=== PATIENT | male | born 1950 | race Caucasian/White ===

== ENCOUNTER → 2016-12-11 | Outpatient (CLI) | payer OTHER ==
[~2016-12-11] MED LIST: ASPIRIN325 PO; ATORVASTATIN CA80 MG PO; AUGMENTIN 875-1 EACH PO; FLONASE 0.05%50 MCG NASAL; HEART PILL PO; LIPITOR80 MG PO; LOPRESSOR25 PO; PLAVIX 75 MG TA75 M1 PO; PLAVIX 75 MG TA75 MG PO; VENTOLIN HFA INH8 GM INH; VITAMIN D1000 UNI1 PO; ZPAK PO
== END ==
LOC: RAD 11:05
DX: J18.9 Pneumonia, unspecified organism (principal)

== ENCOUNTER 2017-06-18 10:28 | Emergency (ER) | payer OTHER ==
[~2017-06-18] VITALS: Ht 180.3 cm; Wt 72.6 kg
[2017-06-18] MEDS ORDERED: TORADOL 10 MG T10 MG PO (11:30)
[2017-06-18] MEDS ORDERED: MOBIC15 MG PO (11:48)
== END 2017-06-18 12:45 | disposition home or self-care (01) ==
LOC: ER 10:28
DX: S90.112A Contusion of left great toe without damage to nail, initial encounter (principal); I25.2 Old myocardial infarction; I25.10 Atherosclerotic heart disease of native coronary artery without angina pectoris; I10 Essential (primary) hypertension; E78.5 Hyperlipidemia, unspecified; Z94.81 Bone marrow transplant status; Z91.041 Radiographic dye allergy status; Z88.8 Allergy status to other drugs, medicaments and biological substances; Z85.6 Personal history of leukemia; W22.09XA Striking against other stationary object, initial encounter; Y93.89 Activity, other specified; Y92.89 Other specified places as the place of occurrence of the external cause; Y99.8 Other external cause status

== ENCOUNTER 2017-08-08 20:10 | Inpatient (IN) | payer OTHER ==
[~2017-08-08] VITALS: Ht 180.3 cm; Wt 62.1 kg
--- NOTE | ~2017-08-08 | HC ---
[facility] [place] [address] CONSULTATION Name: RANJIT DODGEAPOLINAR George Room #: 210-P ADM IN M.R.#: [id number] Admission: 08/09/17 Attend Phys: Benjie Peres MD Discharge: Date of : 48 Report #: [id number] THIS REPORT FOR: //name// CC: Phoebe Peres DATE OF SERVICE: 08/14/2017 CARDIOLOGY CONSULTATION INDICATION: Coronary artery disease. HISTORY OF PRESENT ILLNESS: This is a 67-year-old gentleman who was admitted for nonhealing ulcer on his right foot. He has a significant history of CAD and peripheral vascular disease, but has been noncompliant with followup. Evaluation has revealed DVT in his right lower venous system with pulmonary emboli. He has been treated with IV heparin and started on Xarelto. CT angiogram reveals an occluded right common iliac artery stent with complete thrombosis of the right PILAR and EIA. The right SFA is occluded and the profunda artery supplies the popliteal artery. He is scheduled to possibly undergo right lower extremity peripheral bypass as well as amputation of the toes. From a cardiac standpoint, he has a prior history of DE with stent placement at [facility], more than 10 years ago. Again, he has not followed up with Cardiology in regards to his history of CAD and DE. The patient denies any episodes of angina, dyspnea, lightheadedness or congestion. However, his ambulation is limits and we are unable to assess his functional capacity. PAST MEDICAL HISTORY: CAD/DE with remote stent placement. Peripheral vascular disease with prior left lower extremity bypass. History of leukemia, hypertension and hypercholesterolemia. ALLERGIES: CONTRAST DYE AND PSEUDOEPHEDRINE. MEDICATIONS: At home include Toradol, aspirin, metoprolol twice a day, meloxicam and Ventolin. SOCIAL HISTORY: Positive for tobacco use, smoking 1 pack per day. FAMILY HISTORY: Negative for premature CAD. REVIEW OF SYSTEMS: A full 10-point review of systems performed. Only the pertinent positives and negatives are described in the HPI. PHYSICAL EXAMINATION: [facility] [address] [place] [address] CONSULTATION Name: DAMION DODGE Room #: 210-P [facility] IN [facility].#: [id number] Admission: 08/09/17 Attend Phys: Benjie Peres MD Discharge: Date of : 48 Report #: [id number] VITAL SIGNS: Blood pressure is 130/70, heart rate is 70 beats per minute. GENERAL APPEARANCE: This is a thin male, in no acute respiratory distress. HEAD AND EYES: Normocephalic. Sclerae are anicteric. ENT: Oral mucosa is moist. NECK: Supple, no JVD. LUNGS: Clear to auscultation bilaterally. CARDIAC: Regular rate and rhythm, S1, S2 positive, 1/6 systolic murmur. ABDOMEN: Soft, nontender. EXTREMITIES: No cyanosis. Right foot is bandaged. LABORATORY VALUES: White count 6.9, hemoglobin is 11.4. Sodium is 139. Creatinine is 0.8. Troponin is negative. ASSESSMENT AND PLAN: 1. Preoperative evaluation, he has a prior history of coronary artery disease with stent placement, but has been noncompliant with followup. Clinically, he offers no complaints of angina or dyspnea. However, it is difficult to evaluate his functional status given his underlying peripheral vascular disease. He does not have any absolute contraindications to proceed with the peripheral vascular surgery, especially since it is indicated for quality of life issues. I will schedule the patient for pharmacologic nuclear stress test in order to risk stratify the patient. 2. Peripheral vascular disease, continue workup for peripheral bypass. 3. Pulmonary embolism, status post inferior vena cava filter, currently on Xarelto. 4. Hypertension, continue with medications including beta-behzad and SEB/ARB. 5. Hypercholesterolemia, statin therapy. 6. Tobacco use, complete smoking cessation is recommended. Thank you for allowing me to participate in the care of your patient. <ELECTRONICALLY SIGNED> By: Ousmane Astorga MD 08/15/17 0811 1640 0435 Ousmane Astorga MD /nt
--- NOTE | ~2017-08-08 | HC ---
[facility] [place] [address] CONSULTATION Name: DAMION DODGE Room #: 210-P ADM IN M.R.#: [id number] Admission: 08/09/17 Attend Phys: Benjie Peres MD Discharge: Date of : 48 Report #: [id number] THIS REPORT FOR: //name// CC: Sean Villegas CHIEF COMPLAINT: Right fifth toe pain. HISTORY OF PRESENT ILLNESS: The patient is a 67-year-old gentleman admitted through the [place] ER for evaluation of a necrotic right fifth toe. The patient reports that this has been bothering him for the last couple of months. He does not recall any obvious injury or trauma, but notes that it is becoming darker and more black in appearance. He reports a longstanding history of vascular disease. He has seen Dr. Corbett at [place] to have some vascular procedures as well as a vascular surgeon at [facility]. He reports scratching several areas of his leg that have developed into eschars. Reports his ambulation has been more limited recently. PAST MEDICAL HISTORY: Significant for ____ peripheral arterial disease, DVT, pneumonia, tobaccoism, coronary artery disease with myocardial infarction and stents, hypertension, status post fem-pop to left lower extremity, leukemia status post bone marrow transplant in 1999, hyperlipidemia. ALLERGIES: CONTRAST DYE AND PSEUDOEPHEDRINE. CURRENT MEDICATIONS: Please see current MAR. SOCIAL HISTORY: The patient is retired, was approximate 1 pack per day smoker x 52 years per the chart. Denies alcohol use. PHYSICAL EXAMINATION: GENERAL: The patient is alert, oriented, answering questions appropriately. The patient is dirty, unkempt and appears to be in no apparent distress. VITAL SIGNS: Height 5 feet 11 inches, weight is measured as 125 and then 150, temperature 98.1, pulse 77, respirations 20, O2 sats 96% on room air, BP 124/91. EXTREMITIES: Examination of the lower extremities reveals below the proximal thigh of the right lower extremity is cool, appears to have chronic vascular disease. Large eschars are noted on the anterior leg. Multiple eschars are noted about the foot. Foot is cool. No peripheral pulses or significant capillary refill is noted. Black, necrotic fifth toe in its entirety is appreciated. The patient is able to minimally flex and extend the toes and ankle. The ____ knee itself is not swollen on the right side and has mild warmth and improved capillary refill. Left lower extremity demonstrates chronic vascular disease on gross exam, but has improved warmth and capillary refill noted. Healed incisions from his prior vascular surgeries were noted more proximally. He denies any hip or groin pain or tenderness. 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 Venous ultrasound reveals DVT of common femoral vein distally, appears to be chronic thrombus. Arterial Dopplers reveal occlusion of the right superficial femoral artery with collateral blood flow to the popliteal artery, nothing inferior, no infrapopliteal vessels are visualized, presumed occlusion. LABORATORY DATA: Reviewed. IMPRESSION: 1. Right fifth toe necrosis, dry gangrene. 2. Right lower extremity peripheral arterial disease, chronic. PLAN: I have reviewed potential treatment options with the patient. He has requested Vascular Surgery evaluation or evaluation by Dr. Corbett who has performed some other procedures for him. I think this is reasonable. In discussing what tissue appears viable at this point, it appears unlikely that he will be able to support any tissue for any intermediate. Below the proximal leg, something was to be done from surgical standpoint. I feel like a below-knee amputation would be the lowest level that he could potentially support. The patient does not find this acceptable at all, has no desire for any amputations. He reports the one thing that he would consider would be a fifth toe amputation, but at this point, I think that this will be extremely unlikely to heal and would just be an open nidus for infection. We will have him seen by Vascular Surgery and we will continue to follow with you. <ELECTRONICALLY SIGNED> By: Iron Vasquez MD 08/15/17 0916 0920 1845 Iron Vasquez MD /nt
--- NOTE | ~2017-08-08 | CATHLAB ---
[place] [address] [place] [address] INVASIVE PROCEDURE REPORT Name: ECHODAMION Room #: 210-P [facility] IN ..#: [id number] Admission: 08/09/17 Attend Phys: Derick Lopez Discharge: Date of : 48 Date of Service: 08/18/1705 Report #: [id number] THIS REPORT FOR: //name// APPROVED REPORT Patient Details Patient Status: In-Patient Room #: The patient is a 67 year-old male Event Personnel Ousmane Astorga Mannequin Decorator, Gloria Dixon Monitor, Ruthy Burgos Penny, Wes RN Procedures Performed Art Access - L femoral artery* Left Heart Cath w/or w/o Coronaries [id number] [facility] Indication Dyspnea, Pre-op clearance Risk Factors Peripheral Vascular Disease, Hypercholesterolemia, Coronary Artery DiseaseHypertension, Tobacco History () Previous Procedures/Diagnoses Previous PCI, Previous Vascular Surgery Procedure Narrative The patient was brought urgently to the Cardiac Catheterization Laboratory and was prepped and draped in a sterile manner. The left femoral was infiltrated with 1% Lidocaine subcutaneous anesthesia. A PINNACLE 5FR Sheath #[id number] sheath was inserted into the LFA^. Coronary angiography was performed using coronary diagnostic catheters. The right coronary system was accessed and visualized with a JR 4 catheter. The left coronary system was accessed and visualized with a JL 4 catheter. The left ventricle was accessed and visualized with a JR 4 catheter. The patient tolerated the procedure well and there were no complications associated with the procedure. There was no hematoma. Intraoperative Conscious Sedation Sedation start time: 14:14 Case end Time: 16:05 Fentanyl 250.0 mcg Versed 5.[address] [address] INVASIVE PROCEDURE REPORT Name: DAMION DODGE Room #: 210-P [facility] IN [facility].#: [id number] Admission: 08/09/17 Attend Phys: Derick Lopez Discharge: Date of : 48 Date of Service: 08/18/17 0805 Report #: [id number] Fluoro Time: 21.34 minutes Dose: DAP 24359.50 cGycm2 901 mGy Contrast Type and Amount: Visipaque 248 ml Coronary Angiography The patient's coronary anatomy is right dominant. Diagnostic Cath Left Main Large-caliber vessel, with mild stenosis in the midsegment, 20%. LAD Stent in the proximal segment, widely patent with minimal restenosis. There are no flow-limiting lesions in the remaining segments of the LAD. Circumflex Patent vessel, supplies 2 obtuse marginal arteries OM1 Patent with mild disease. OM2 Mild to modest stenosis in the ostium, 40% Right Coronary Dominant vessel with a mild to moderate stenosis in the proximal segment, 40% R PDA Patent with no flow-limiting lesions. RPLV Patent with no flow-limiting lesions. Left Ventriculography Left Ventriculography was not performed. An LVEDP was measured, no gradient across the outflow tract. Hemodynamics The aortic pressure is 160/71 mmHg with a mean of 107 mmHg. The left ventricular pressure is 172/5 mmHg with a mean of mmHg. The left ventricular end diastolic pressure is 26 mmHg. Conclusion 1. Patent stent in the proximal LAD with minimal restenosis. 2. Mild to moderate disease, as noted above. 3. Recommend medical therapy. Recommendations Medical Therapy <ELECTRONICALLY SIGNED> By: Ousmane Astorga MD 08/18/17804 4 4 Ousmane Astorga MD /INF
--- NOTE | ~2017-08-08 | HC ---
[facility] [place] [address] CONSULTATION Name: ECHODAMION Room #: 251-P ADM IN M.R.#: [id number] Admission: 08/09/17 Attend Phys: Benjie Peres MD Discharge: Date of : 49 Report #: [id number] THIS REPORT FOR: //name// CC: Phoebe Peres REASON FOR CONSULTATION: I was asked to evaluate concerning sepsis. HISTORY OF PRESENT ILLNESS: The patient is a 67-year-old with underlying history of coronary artery disease and peripheral vascular disease. He has had previous right fem-pop bypass on the left and stenting on the right. He also has a history of leukemia, having been in remission since 1999. Three months ago, he had a local trauma to the right fifth distal toe. Lost the nail. He has had progressive wound since that time. He presents on 08/09, with progressive pain and wounds involving the right lower extremity [id number]. Workup had shown obstruction of the common iliac stent with incomplete runoff. Also, diagnosed with DVT and pulmonary embolus. He has been somewhat difficult to manage, wanting to leave AMA. Last evening was confused, pulled his IV out, was pacing the floor, received some anxiolytics. Now, he is obtunded down in the intensive care unit. Unable to give any history. Fever documented up to 38.3. Hemodynamically stable. He has been on vancomycin and Zosyn. He has significant amount of pain in his right foot. No cough or sputum production. No nausea, vomiting, or diarrhea. No reported decubiti. He has an indwelling Diggs catheter. He pulled out his PICC line and has peripheral IVs in place at this time. ALLERGIES: CONTRAST DYE and PSEUDOEPHEDRINE. MEDICATIONS: As noted on his MAR including vancomycin and Zosyn. PAST MEDICAL HISTORY: Leukemia, coronary artery disease, COPD, rheumatoid arthritis, peripheral vascular disease, left fem-pop bypass, right iliac artery stenting, smoker of cigarettes. SOCIAL HISTORY: In addition to the above, lives alone, uses marijuana and reportedly quit alcohol several years ago. REVIEW OF SYSTEMS: The patient is unable to give any details other as noted above. FAMILY HISTORY: Noncontributory. PHYSICAL EXAMINATION: VITAL SIGNS: Afebrile, blood pressure 137/73, pulse 80. GENERAL: He was disheveled. Long zuleta. Edentulous. NECK: Supple. [facility] [address] [place] [address] CONSULTATION Name: DAMION DODGE Room #: 251-P [facility] IN .R.#: [id number] Admission: 08/09/17 Attend Phys: Benjie Peres MD Discharge: Date of : 48 Report #: [id number] EXTREMITIES: Ischemic changes to his right lower extremity [id number]. He had some modeling from the calf down. He had dorsal foot eschar wounds, had dry gangrene to the fourth and fifth toes. Ischemic first toe. Exquisitely tender throughout his lower leg with withdrawal when palpated. Diminished pulses throughout the right leg. CHEST: Clear. HEART: Regular. ABDOMEN: Soft, nontender, no hepatosplenomegaly or mass. GENITOURINARY: External genitalia unremarkable with indwelling Diggs catheter. LABORATORY STUDIES: CT of the head negative. Chest x-ray on admission, clear. Urinalysis had rbc's. There is an IVC filter in place. Angiogram showed occlusive disease of the right lower extremity. Sodium 145, potassium 3.1, creatinine 0.9, and bicarbonate 29. Hemoglobin 13, white count 6, 82% segs, 9% lymphs, platelet count 104,000. IMPRESSION: Encephalopathy with delirium leading up to this. He has ischemia to the right lower extremity and gangrene. We would recommend IV antibiotic therapy pending culture results. This should cover the right lower extremity ischemic tissue and wounds. Workup of his encephalopathy is ongoing by neurology service. I suspect a component of toxic metabolic encephalopathy. He has some underlying emotional issues, I am suspecting at the start. Unclear if he could potentially have alcohol withdrawal syndrome. RECOMMENDATION: Continue IV antibiotic therapy. Obtain cultures of blood. Chest x-ray. He does have underlying DVT and PE that is required IVC filter and anticoagulation. We will also check HIV and hepatitis B and C. <ELECTRONICALLY SIGNED> By: Emil Montano MD 08/14/17 0928 1035 1256 Emil Montano MD /nt
--- NOTE | ~2017-08-08 | EEG ---
[facility] [place] [address] ELECTROENCEPHALOGRAM Name: DAMION DODGE Room #: 210-P ADM IN M.R.#: [id number] Admission: 08/09/17 Attend Phys: Benjie Peres MD Discharge: Date of : 48 Report #: [id number] THIS REPORT FOR: //name// CC: Phoebe Peres DATE OF SERVICE: 08/13/2017 DATE OF SERVICE: 08/13/2017 PROCEDURE: EEG. INDICATIONS FOR PROCEDURE: This patient's EEG is being done because of altered mental status. DESCRIPTION OF PROCEDURE: EEG was done by placing the electrodes by standard 10-20 system of electrode placement. Both referential and sequential montages were used for recording. Background activity in this patient's EEG is about 7-8 Hz and 30-40 microvolts. Photic stimulation was unremarkable. IMPRESSION: This is a moderately abnormal EEG because it is intermixed with slowing and is poorly formed. That is a nonspecific abnormality, which can occur with encephalopathy, effect of psychotropic medication, dementia, etc. Clinical correlation is recommended. Thank you very much for this referral. <ELECTRONICALLY SIGNED> By: Seng Scanlon MD 08/18/17 0624 0749 0800 Seng Scanlon MD /nt
--- NOTE | ~2017-08-08 | 2DMMODE ---
[facility] [address] [place] [address] 2 D/M-MODE ECHOCARDIOGRAM Name: DAMION DODGE Room #: 251-P ADM IN M.R.#: [id number] Admission: 08/09/17 Attend Phys: Derick Lopez Discharge: Date of : 48 Date of Service: 08/14/17 1425 Report #: [id number] THIS REPORT FOR: //name// APPROVED REPORT Study performed: 08/14/2017 12:34:45 EXAM: Comprehensive 2D, Doppler, and color-flow Echocardiogram Patient Location: ICU Room #: [facility] Status: routine BSA: 1.75 HR: 104 bpm BP: 146/83 mmHg Other Information Study Quality: Adequate Indications CAD Hypertension/HDD 2D Dimensions RVDd: 39.85 mm LVEF(%): 34.25 (>50%) IVSd: 8.57 (7-11mm) LVOT Diam: 21.54 (18-24mm) LVDd: 49.74 mm PWd: 9.99 (7-11mm) Ascending Ao: 34.36 (22-36mm) LVDs: 41.59 (25-40mm) Aortic Root: 31.35 mm IVC: 27.00 mm Ho's LVEF: 34.25 % Volumes Left Atrial Volume (Systole) Single Plane 4CH: 36.79 mL Single Plane 2CH: 61.31 mL LA ESV Index: 34.00 mL/m2 Aortic Valve AoV Peak Shane.: 1.82 m/s AO Peak Gr.: 13.28 mmHg LVOT Max P.14 mmHg LVOT Max V: 1.02 m/s KENNY Vmax: 2.03 cm2 Mitral Valve E/A Ratio: 0.9 MV Decel. Time: 124.87 ms [facility] [place] [address] 2 D/M-MODE ECHOCARDIOGRAM Name: DAMION DODGE Room #: 251-P [facility] IN .R.#: [id number] Admission: 08/09/17 Attend Phys: Derick Lopez Discharge: Date of : 48 Date of Service: 08/14/17 1425 Report #: [id number] MV E Max Shane.: 1.06 m/s MV A Shane.: 1.20 m/s MV PHT: 36.21 ms IVRT: 96.89 ms Pulmonary Valve PV Peak Shane.: 0.94 m/s PV Peak Gr.: 3.53 mmHg Left Ventricle The left ventricle is normal size. Regional wall motion abnormalities are noted. There is normal left ventricular wall thickness. Left ventricular ejection fraction is mild to moderately decreased. LVEF is 40-45%. Grade I - abnormal relaxation pattern. Right Ventricle The right ventricle is normal size. The right ventricular systolic function is normal. Atria Left atrium is at the upper limits of normal. The right atrium size is normal. Aortic Valve The aortic valve is normal in structure. Aortic valve is calcified. Trace aortic regurgitation. There is no aortic valvular stenosis. Mitral Valve The mitral valve is normal in structure. Trace mitral regurgitation. No evidence of mitral valve stenosis. Tricuspid Valve The tricuspid valve is normal in structure. There is no tricuspid valve regurgitation noted. Pulmonic Valve The pulmonary valve is normal in structure. There is no pulmonic valvular regurgitation. Great Vessels The aortic root is normal in size. IVC is dilated and collapses >50% with inspiration. Pericardium There is no pericardial effusion. [facility] [address] [place] [address] 2 D/M-MODE ECHOCARDIOGRAM Name: DAMION DODGE Doris Room #: 251-P [facility] IN .R.#: [id number] Admission: 08/09/17 Attend Phys: Derick Lopez Discharge: Date of : 48 Date of Service: 08/14/17 1425 Report #: [id number] <Conclusion> Left ventricular ejection fraction is mild to moderately decreased. The right ventricle is normal size. Left atrium is at the upper limits of normal. Aortic valve is calcified. Trace aortic regurgitation. Trace mitral regurgitation. There is no pericardial effusion. <ELECTRONICALLY SIGNED> By: Ousmane Astorga MD 08/14/17 142 1425 24 Ousmane Astorga MD /RADHA
[~2017-08-08 20:10] MED LIST changes: +MOBIC15 MG PO; +TORADOL 10 MG T10 MG PO
[2017-08-08 20:11] VITALS: BP 132/88
[2017-08-09 00:47] LABS: HEMATOCRIT 44.3 % (42.0-52.0); HEMOGLOBIN 15.1 gm/dL (14.0-18.0); MCH 31.7 pg (26.0-34.0); MCV 93.2 fL (80.0-100.0); RBC 4.75 mil/uL (4.50-6.00); RDW 13.3 % (10.5-14.5); WBC 8.1 thou/uL (4.0-11.0)
[2017-08-09 00:50] LABS: CALCIUM 8.8 mg/dL (8.5-10.1); CREATININE 0.9 mg/dL (0.7-1.3); POTASSIUM 3.4 mmol/L (3.5-5.1)
[2017-08-09 00:56] LABS: ALBUMIN 2.6 g/dL (3.4-5.0); TOTAL BILIRUBIN 0.8 mg/dL (<0.1-1.0); TOTAL PROTEIN 6.5 g/dL (6.4-8.2)
[2017-08-09 01:04] LABS: INR 1.1
[2017-08-09 02:46] VITALS: BP 104/63
[2017-08-09 02:55] VITALS: BP 121/94
[2017-08-09 08:15] VITALS: BP 124/91
[2017-08-09 12:16] VITALS: BP 107/73
[2017-08-09 16:33] VITALS: BP 130/72
[2017-08-09 19:00] VITALS: BP 103/69
[2017-08-10 04:00] VITALS: BP 140/77
[2017-08-10 05:10] LABS: HEMOGLOBIN 13.9 gm/dL (14.0-18.0); MCHC 34.7 g/dL (28.0-37.0); MCV 92.1 fL (80.0-100.0); RBC 4.35 mil/uL (4.50-6.00); RDW 13.2 % (10.5-14.5); WBC 10.1 thou/uL (4.0-11.0)
[2017-08-10 05:22] LABS: ALBUMIN 2.3 g/dL (3.4-5.0); ANION GAP 9 mmol/L (7-16); BUN 14 mg/dL (7-18); CALCIUM 8.4 mg/dL (8.5-10.1); CHLORIDE 103 mmol/L (98-107); CHOLESTEROL 132 mg/dL (<200); CO2 26 mmol/L (21-32); CREATININE 0.7 mg/dL (0.7-1.3); GLUCOSE 117 mg/dL (74-106); HDL CHOLESTEROL 26 mg/dL (>40); LDL CHOLESTEROL 92 mg/dL (<100); PHOSPHORUS 3.4 mg/dL (2.5-4.9); POTASSIUM 3.5 mmol/L (3.5-5.1); SODIUM 138 mmol/L (136-145); TC:HDL 5.1 Ratio (Not establshd); TRIGLYCERIDE 74 mg/dL (<150); VLDL 15 mg/dL (<40)
[2017-08-10 11:18] VITALS: BP 100/68
[2017-08-10 15:28] VITALS: BP 113/79
[2017-08-10 19:43] VITALS: BP 90/55
[2017-08-11 03:09] VITALS: BP 133/57
[2017-08-11 07:31] VITALS: BP 116/79
[2017-08-11 19:21] VITALS: BP 106/78
[2017-08-12 04:35] VITALS: BP 127/88
[2017-08-12 08:25] VITALS: BP 106/70
[2017-08-12 14:59] VITALS: BP 106/70
[2017-08-12 19:20] VITALS: BP 105/64
[2017-08-13] VITALS (40 sets, daily range): BP systolic 105–161; BP diastolic 44–112
[2017-08-13 09:26] LABS: URINE BILIRUBIN NEGATIVE (Negative); URINE BLOOD 3+ (Negative); URINE GLUCOSE-RANDOM* NEGATIVE (Negative); URINE KETONES NEGATIVE (Negative); URINE LEUKOCYTES-REFLEX NEGATIVE (Negative); URINE PROTEIN (DIPSTICK) NEGATIVE (Negative); URINE UROBILINOGEN 0.2 E.U./dl (0.2-1.0)
[2017-08-13 09:29] LABS: URINE COLOR DARK YELLOW
[2017-08-13 09:30] LABS: ABSOLUTE NEUTROPHILS 4.9 thou/uL (1.4-8.2); BASOPHILS 0.4 % (0.0-2.0); EOSINOPHILS 0.8 % (0.0-3.0); HEMATOCRIT 37.8 % (42.0-52.0); HEMOGLOBIN 13.1 gm/dL (14.0-18.0); LYMPHOCYTES 9.8 % (24.0-44.0); MCH 31.7 pg (26.0-34.0); MCHC 34.5 g/dL (28.0-37.0); MCV 91.8 fL (80.0-100.0); PLATELET COUNT 104 thou/uL (150-400); RBC 4.12 mil/uL (4.50-6.00)
[2017-08-13 09:35] LABS: MANUAL DIFF NO
[2017-08-13 09:38] LABS: CALCIUM 8.1 mg/dL (8.5-10.1); CREATININE 0.9 mg/dL (0.7-1.3); POTASSIUM 3.1 mmol/L (3.5-5.1)
[2017-08-13 09:45] LABS: CASTS None Seen /LPF (None Seen); CRYSTALS None Seen /LPF (None Seen); SQUAMOUS None Seen /LPF (0-3); URINE RBC >20 Many /HPF (0-2); URINE WBC-REFLEX None Seen /HPF (0-5)
[2017-08-13 11:04] LABS: AMP/METHAMP Negative (Negative); BARBITURATES Negative (Negative); BENZODIAZEPINES Negative (Negative); COCAINE Negative (Negative); METHADONE Negative (Negative); OPIATES Negative (Negative); PCP Negative (Negative); THC Negative (Negative)
[2017-08-14] VITALS (70 sets, daily range): BP systolic 94–172; BP diastolic 37–106
[2017-08-14 00:06] LABS: HEPATITIS C VIRUS AB <0.1 (0.0-0.9); HIV ANTIBODY Non Reactive (Non Reactive)
[2017-08-14 03:04] LABS: ABSOLUTE NEUTROPHILS 5.3 thou/uL (1.4-8.2); BASOPHILS 0.4 % (0.0-2.0); EOSINOPHILS 1.3 % (0.0-3.0); HEMATOCRIT 33.6 % (42.0-52.0); HEMOGLOBIN 11.4 gm/dL (14.0-18.0); LYMPHOCYTES 9.6 % (24.0-44.0); MCH 31.3 pg (26.0-34.0); MCHC 33.8 g/dL (28.0-37.0); MCV 92.4 fL (80.0-100.0); MONOCYTES 11.1 % (1.0-8.0); PLATELET COUNT 108 thou/uL (150-400); POLYS 77.6 % (36.0-66.0); RBC 3.64 mil/uL (4.50-6.00); RDW 13.1 % (10.5-14.5); WBC 6.9 thou/uL (4.0-11.0)
[2017-08-14 03:06] LABS: MANUAL DIFF NO
[2017-08-14 03:15] LABS: ALBUMIN 1.6 g/dL (3.4-5.0); ALKALINE PHOSPHATASE 40 U/L (46-116); ANION GAP 6 mmol/L (7-16); BUN 10 mg/dL (7-18); CALCIUM 7.7 mg/dL (8.5-10.1); CHLORIDE 106 mmol/L (98-107); CO2 27 mmol/L (21-32); CREATININE 0.8 mg/dL (0.7-1.3); GLUCOSE 116 mg/dL (74-106); POTASSIUM 3.1 mmol/L (3.5-5.1); SGOT 27 U/L (15-37); SGPT 22 U/L (30-65); SODIUM 139 mmol/L (136-145); TOTAL BILIRUBIN 0.4 mg/dL (<0.1-1.0); TOTAL PROTEIN 4.9 g/dL (6.4-8.2); TROPONIN-I < 0.04 ng/mL (<0.04-0.07)
[2017-08-15] VITALS (14 sets, daily range): BP systolic 133–150; BP diastolic 61–78
[2017-08-16 03:48] VITALS: BP 123/53
[2017-08-16 04:29] LABS: HEMATOCRIT 32.7 % (42.0-52.0); MCHC 33.5 g/dL (28.0-37.0); MCV 92.4 fL (80.0-100.0); PLATELET COUNT 142 thou/uL (150-400); RBC 3.54 mil/uL (4.50-6.00); WBC 7.6 thou/uL (4.0-11.0)
[2017-08-16 04:30] LABS: CALCIUM 7.9 mg/dL (8.5-10.1); CREATININE 0.7 mg/dL (0.7-1.3); POTASSIUM 3.3 mmol/L (3.5-5.1)
[2017-08-16 04:53] LABS: MANUAL DIFF YES
[2017-08-16 06:03] LABS: ABSOLUTE NEUTROPHILS 7.3 thou/uL (1.4-8.2); ATYPICAL LYMPHS 1 %; TOTAL CELL COUNT 100
[2017-08-16 09:10] VITALS: BP 106/56
[2017-08-16 12:30] VITALS: BP 131/62
[2017-08-16 17:45] VITALS: BP 143/54
[2017-08-16 19:34] VITALS: BP 117/64
[2017-08-17 04:11] VITALS: BP 119/62
[2017-08-17 04:48] LABS: BASOPHILS 0.3 % (0.0-2.0); EOSINOPHILS 4.3 % (0.0-3.0); HEMATOCRIT 30.1 % (42.0-52.0); HEMOGLOBIN 10.3 gm/dL (14.0-18.0); MCH 31.5 pg (26.0-34.0); MCV 92.6 fL (80.0-100.0); PLATELET COUNT 143 thou/uL (150-400); POLYS 75.4 % (36.0-66.0); RBC 3.26 mil/uL (4.50-6.00); WBC 6.7 thou/uL (4.0-11.0)
[2017-08-17 05:00] LABS: MANUAL DIFF NO
[2017-08-17 05:04] LABS: CALCIUM 7.8 mg/dL (8.5-10.1); CREATININE 0.8 mg/dL (0.7-1.3); POTASSIUM 3.2 mmol/L (3.5-5.1)
[2017-08-17 08:00] VITALS: BP 139/64
[2017-08-17 10:53] LABS: CALCIUM 7.7 mg/dL (8.5-10.1); CREATININE 0.7 mg/dL (0.7-1.3); MAGNESIUM 1.7 mg/dL (1.8-2.4); POTASSIUM 3.1 mmol/L (3.5-5.1)
[2017-08-17 12:00] VITALS: BP 108/69
[2017-08-17 16:00] VITALS: BP 147/61
[2017-08-17 19:45] VITALS: BP 134/64
[2017-08-18 04:30] VITALS: BP 102/79
[2017-08-18 07:20] VITALS: BP 122/76
[2017-08-18 07:56] VITALS: BP 134/78
[2017-08-18 11:10] VITALS: BP 116/70
[2017-08-18 14:21] LABS: ABSOLUTE NEUTROPHILS 6.1 thou/uL (1.4-8.2); BASOPHILS 0.4 % (0.0-2.0); EOSINOPHILS 2.7 % (0.0-3.0); HEMATOCRIT 36.5 % (42.0-52.0); HEMOGLOBIN 12.1 gm/dL (14.0-18.0); LYMPHOCYTES 12.2 % (24.0-44.0); MCH 30.9 pg (26.0-34.0); MCHC 33.2 g/dL (28.0-37.0); MCV 93.2 fL (80.0-100.0); MONOCYTES 8.2 % (1.0-8.0); POLYS 76.5 % (36.0-66.0); RBC 3.91 mil/uL (4.50-6.00); RDW 12.9 % (10.5-14.5); WBC 7.9 thou/uL (4.0-11.0)
[2017-08-18 14:25] LABS: MANUAL DIFF NO; PLATELET COUNT 218 thou/uL (150-400)
[2017-08-18 14:29] LABS: CREATININE 0.8 mg/dL (0.7-1.3); POTASSIUM 3.6 mmol/L (3.5-5.1)
[2017-08-18 15:05] VITALS: BP 108/73
[2017-08-18 20:00] VITALS: BP 101/72
[2017-08-19 08:47] VITALS: BP 89/60
[2017-08-19] MEDS ORDERED: CLOPIDOGREL75 MG PO (10:43)
[2017-08-19 11:19] VITALS: BP 109/66
[2017-08-19] MEDS ORDERED: AUGMENTIN 875-1 EACH PO (11:28)
[2017-08-19 15:59] VITALS: BP 99/57
== END 2017-08-19 16:33 | DRG 853 ==
LOC: ER 20:10 → 4W 08-09 00:13 → EROBS 08-09 00:13 → 4W 08-09 02:48 → ICU 08-13 09:39 → 2N 08-14 18:40
PROVIDERS: Family Medicine; Hospitalist; Nuclear Medicine Nuclear Cardiology; Nurse Practitioner; Nurse Practitioner Acute Care; Nurse Practitioner Family; Specialist
DX: A41.9 Sepsis, unspecified organism (principal); I26.99 Other pulmonary embolism without acute cor pulmonale; G92 Toxic encephalopathy; G93.40 Encephalopathy, unspecified; I82.431 Acute embolism and thrombosis of right popliteal vein; I96 Gangrene, not elsewhere classified; L97.919 Non-pressure chronic ulcer of unspecified part of right lower leg with unspecified severity; E46 Unspecified protein-calorie malnutrition; Z94.81 Bone marrow transplant status; Z68.1 Body mass index [BMI] 19.9 or less, adult; I82.411 Acute embolism and thrombosis of right femoral vein; I25.10 Atherosclerotic heart disease of native coronary artery without angina pectoris; E78.5 Hyperlipidemia, unspecified; I10 Essential (primary) hypertension; I73.9 Peripheral vascular disease, unspecified; F17.210 Nicotine dependence, cigarettes, uncomplicated; E78.00 Pure hypercholesterolemia, unspecified; M06.9 Rheumatoid arthritis, unspecified; D69.6 Thrombocytopenia, unspecified; I25.2 Old myocardial infarction; Z85.6 Personal history of leukemia; Z95.5 Presence of coronary angioplasty implant and graft; Z79.899 Other long term (current) drug therapy; Z88.8 Allergy status to other drugs, medicaments and biological substances; Z91.041 Radiographic dye allergy status; Z82.49 Family history of ischemic heart disease and other diseases of the circulatory system; Z91.14 Patient's other noncompliance with medication regimen; Z89.511 Acquired absence of right leg below knee; Z71.6 Tobacco abuse counseling
CPT/HCPCS: 10045; 10078; 10081; 27000

== ENCOUNTER → 2017-09-03 | Outpatient (CLI) | payer OTHER ==
[~2017-09-03] MED LIST changes: +CLOPIDOGREL75 MG PO
== END ==
LOC: HYPER 07-23 14:33
DX: I70.235 Atherosclerosis of native arteries of right leg with ulceration of other part of foot (principal); L97.511 Non-pressure chronic ulcer of other part of right foot limited to breakdown of skin; I70.245 Atherosclerosis of native arteries of left leg with ulceration of other part of foot; L97.521 Non-pressure chronic ulcer of other part of left foot limited to breakdown of skin; I70.238 Atherosclerosis of native arteries of right leg with ulceration of other part of lower leg; L97.811 Non-pressure chronic ulcer of other part of right lower leg limited to breakdown of skin; I70.233 Atherosclerosis of native arteries of right leg with ulceration of ankle; L97.311 Non-pressure chronic ulcer of right ankle limited to breakdown of skin; Z86.718 Personal history of other venous thrombosis and embolism; J44.9 Chronic obstructive pulmonary disease, unspecified; I96 Gangrene, not elsewhere classified; F17.200 Nicotine dependence, unspecified, uncomplicated; Z72.89 Other problems related to lifestyle

== ENCOUNTER → 2017-09-22 | Outpatient (CLI) | payer OTHER | LOC: HYPER 09-18 13:01 | DX: I70.235 Atherosclerosis of native arteries of right leg with ulceration of other part of foot (principal); L97.511 Non-pressure chronic ulcer of other part of right foot limited to breakdown of skin; I70.233 Atherosclerosis of native arteries of right leg with ulceration of ankle; L97.311 Non-pressure chronic ulcer of right ankle limited to breakdown of skin; L97.811 Non-pressure chronic ulcer of other part of right lower leg limited to breakdown of skin; I73.9 Peripheral vascular disease, unspecified; I10 Essential (primary) hypertension; E78.5 Hyperlipidemia, unspecified; J44.9 Chronic obstructive pulmonary disease, unspecified; Z86.718 Personal history of other venous thrombosis and embolism; F17.200 Nicotine dependence, unspecified, uncomplicated; Z72.89 Other problems related to lifestyle ==

== ENCOUNTER → 2017-10-09 | Outpatient (CLI) | payer OTHER | LOC: HYPER 10-06 07:35 | DX: L97.312 Non-pressure chronic ulcer of right ankle with fat layer exposed (principal); L97.812 Non-pressure chronic ulcer of other part of right lower leg with fat layer exposed; I96 Gangrene, not elsewhere classified; I73.9 Peripheral vascular disease, unspecified; J44.9 Chronic obstructive pulmonary disease, unspecified; I25.10 Atherosclerotic heart disease of native coronary artery without angina pectoris; E78.5 Hyperlipidemia, unspecified; F17.210 Nicotine dependence, cigarettes, uncomplicated; Z72.89 Other problems related to lifestyle; Z86.718 Personal history of other venous thrombosis and embolism ==

== ENCOUNTER → 2017-10-30 | Outpatient (CLI) | payer OTHER | LOC: HYPER 06:42 | DX: I70.238 Atherosclerosis of native arteries of right leg with ulceration of other part of lower leg (principal); L97.312 Non-pressure chronic ulcer of right ankle with fat layer exposed; L97.812 Non-pressure chronic ulcer of other part of right lower leg with fat layer exposed; L97.512 Non-pressure chronic ulcer of other part of right foot with fat layer exposed; I10 Essential (primary) hypertension; I25.10 Atherosclerotic heart disease of native coronary artery without angina pectoris; I96 Gangrene, not elsewhere classified; E78.5 Hyperlipidemia, unspecified; J44.9 Chronic obstructive pulmonary disease, unspecified; F17.200 Nicotine dependence, unspecified, uncomplicated; Z86.718 Personal history of other venous thrombosis and embolism; Z72.89 Other problems related to lifestyle; Z85.6 Personal history of leukemia ==

== ENCOUNTER → 2017-11-20 | Outpatient (CLI) | payer OTHER | LOC: HYPER 06:53 | DX: I70.238 Atherosclerosis of native arteries of right leg with ulceration of other part of lower leg (principal); L97.812 Non-pressure chronic ulcer of other part of right lower leg with fat layer exposed; L97.312 Non-pressure chronic ulcer of right ankle with fat layer exposed; I70.235 Atherosclerosis of native arteries of right leg with ulceration of other part of foot; L97.511 Non-pressure chronic ulcer of other part of right foot limited to breakdown of skin; I10 Essential (primary) hypertension; I25.10 Atherosclerotic heart disease of native coronary artery without angina pectoris; E78.5 Hyperlipidemia, unspecified; I96 Gangrene, not elsewhere classified; J44.9 Chronic obstructive pulmonary disease, unspecified; F17.200 Nicotine dependence, unspecified, uncomplicated; Z86.718 Personal history of other venous thrombosis and embolism; Z72.89 Other problems related to lifestyle ==

== ENCOUNTER → 2017-12-10 | Outpatient (CLI) | payer OTHER | LOC: HYPER 06:51 | DX: I70.238 Atherosclerosis of native arteries of right leg with ulceration of other part of lower leg (principal); L97.812 Non-pressure chronic ulcer of other part of right lower leg with fat layer exposed; L97.312 Non-pressure chronic ulcer of right ankle with fat layer exposed; L97.514 Non-pressure chronic ulcer of other part of right foot with necrosis of bone; I96 Gangrene, not elsewhere classified; I73.9 Peripheral vascular disease, unspecified; I25.10 Atherosclerotic heart disease of native coronary artery without angina pectoris; E78.5 Hyperlipidemia, unspecified; I10 Essential (primary) hypertension; J44.9 Chronic obstructive pulmonary disease, unspecified; F17.210 Nicotine dependence, cigarettes, uncomplicated; Z86.718 Personal history of other venous thrombosis and embolism; Z85.6 Personal history of leukemia; Z85.830 Personal history of malignant neoplasm of bone; Z72.89 Other problems related to lifestyle ==

== ENCOUNTER → 2018-01-01 | Outpatient (CLI) | payer OTHER | LOC: HYPER 12-25 06:49 | DX: I70.238 Atherosclerosis of native arteries of right leg with ulceration of other part of lower leg (principal); L97.514 Non-pressure chronic ulcer of other part of right foot with necrosis of bone; L97.312 Non-pressure chronic ulcer of right ankle with fat layer exposed; L97.812 Non-pressure chronic ulcer of other part of right lower leg with fat layer exposed; I96 Gangrene, not elsewhere classified; I73.9 Peripheral vascular disease, unspecified; I25.10 Atherosclerotic heart disease of native coronary artery without angina pectoris; J44.9 Chronic obstructive pulmonary disease, unspecified; I10 Essential (primary) hypertension; E78.5 Hyperlipidemia, unspecified; Z86.718 Personal history of other venous thrombosis and embolism; Z85.828 Personal history of other malignant neoplasm of skin; F17.200 Nicotine dependence, unspecified, uncomplicated; Z72.89 Other problems related to lifestyle ==

== ENCOUNTER → 2018-02-04 | Outpatient (CLI) | payer OTHER | LOC: HYPER 01-15 08:53 | DX: I70.235 Atherosclerosis of native arteries of right leg with ulceration of other part of foot (principal); L97.514 Non-pressure chronic ulcer of other part of right foot with necrosis of bone; L97.312 Non-pressure chronic ulcer of right ankle with fat layer exposed; I96 Gangrene, not elsewhere classified; I73.9 Peripheral vascular disease, unspecified; I82.409 Acute embolism and thrombosis of unspecified deep veins of unspecified lower extremity; I25.10 Atherosclerotic heart disease of native coronary artery without angina pectoris; J44.9 Chronic obstructive pulmonary disease, unspecified; E78.5 Hyperlipidemia, unspecified; I10 Essential (primary) hypertension; F17.210 Nicotine dependence, cigarettes, uncomplicated; Z86.718 Personal history of other venous thrombosis and embolism; Z85.828 Personal history of other malignant neoplasm of skin; Z72.89 Other problems related to lifestyle ==

== ENCOUNTER → 2018-02-18 | Outpatient (CLI) | payer OTHER | LOC: HYPER 07:07 | DX: I70.238 Atherosclerosis of native arteries of right leg with ulceration of other part of lower leg (principal); L97.514 Non-pressure chronic ulcer of other part of right foot with necrosis of bone; L97.312 Non-pressure chronic ulcer of right ankle with fat layer exposed; L97.812 Non-pressure chronic ulcer of other part of right lower leg with fat layer exposed; I96 Gangrene, not elsewhere classified; I10 Essential (primary) hypertension; I25.10 Atherosclerotic heart disease of native coronary artery without angina pectoris; E78.5 Hyperlipidemia, unspecified; J44.9 Chronic obstructive pulmonary disease, unspecified; F17.200 Nicotine dependence, unspecified, uncomplicated; Z86.718 Personal history of other venous thrombosis and embolism ==

== ENCOUNTER → 2018-03-04 | Outpatient (CLI) | payer OTHER | LOC: HYPER 06:45 | DX: I70.238 Atherosclerosis of native arteries of right leg with ulceration of other part of lower leg (principal); L97.514 Non-pressure chronic ulcer of other part of right foot with necrosis of bone; L97.312 Non-pressure chronic ulcer of right ankle with fat layer exposed; I96 Gangrene, not elsewhere classified; L97.812 Non-pressure chronic ulcer of other part of right lower leg with fat layer exposed; I73.9 Peripheral vascular disease, unspecified; E78.5 Hyperlipidemia, unspecified; I10 Essential (primary) hypertension; J44.9 Chronic obstructive pulmonary disease, unspecified; Z86.718 Personal history of other venous thrombosis and embolism; I25.10 Atherosclerotic heart disease of native coronary artery without angina pectoris; Z85.828 Personal history of other malignant neoplasm of skin; F17.210 Nicotine dependence, cigarettes, uncomplicated ==

== ENCOUNTER → 2018-04-01 | Outpatient (CLI) | payer OTHER | LOC: HYPER 06:51 | DX: I70.235 Atherosclerosis of native arteries of right leg with ulceration of other part of foot (principal); L97.514 Non-pressure chronic ulcer of other part of right foot with necrosis of bone; I70.238 Atherosclerosis of native arteries of right leg with ulceration of other part of lower leg; L97.811 Non-pressure chronic ulcer of other part of right lower leg limited to breakdown of skin; I82.409 Acute embolism and thrombosis of unspecified deep veins of unspecified lower extremity; I10 Essential (primary) hypertension; I25.10 Atherosclerotic heart disease of native coronary artery without angina pectoris; L84 Corns and callosities; E78.5 Hyperlipidemia, unspecified; J44.9 Chronic obstructive pulmonary disease, unspecified; F17.200 Nicotine dependence, unspecified, uncomplicated ==

== ENCOUNTER → 2018-04-15 | Outpatient (CLI) | payer OTHER | LOC: HYPER 06:45 | DX: I70.234 Atherosclerosis of native arteries of right leg with ulceration of heel and midfoot (principal); L97.514 Non-pressure chronic ulcer of other part of right foot with necrosis of bone; I70.238 Atherosclerosis of native arteries of right leg with ulceration of other part of lower leg; L97.811 Non-pressure chronic ulcer of other part of right lower leg limited to breakdown of skin; L84 Corns and callosities; I10 Essential (primary) hypertension; E78.5 Hyperlipidemia, unspecified; I25.10 Atherosclerotic heart disease of native coronary artery without angina pectoris; J44.9 Chronic obstructive pulmonary disease, unspecified; F17.200 Nicotine dependence, unspecified, uncomplicated; Z86.718 Personal history of other venous thrombosis and embolism ==

== ENCOUNTER → 2018-05-06 | Outpatient (CLI) | payer OTHER | LOC: HYPER 07:06 | DX: I70.235 Atherosclerosis of native arteries of right leg with ulceration of other part of foot (principal); L97.514 Non-pressure chronic ulcer of other part of right foot with necrosis of bone; I70.238 Atherosclerosis of native arteries of right leg with ulceration of other part of lower leg; L97.811 Non-pressure chronic ulcer of other part of right lower leg limited to breakdown of skin; I10 Essential (primary) hypertension; I25.10 Atherosclerotic heart disease of native coronary artery without angina pectoris; L84 Corns and callosities; E78.5 Hyperlipidemia, unspecified; J44.9 Chronic obstructive pulmonary disease, unspecified; F17.200 Nicotine dependence, unspecified, uncomplicated; Z86.718 Personal history of other venous thrombosis and embolism ==

== ENCOUNTER → 2021-03-27 | Outpatient (CLI) | payer OTHER | LOC: SJCVC 14:17 | PROVIDERS: ATTEND Internal Medicine Cardiovascular Disease | DX: R94.31 Abnormal electrocardiogram [ECG] [EKG] (principal); I11.9 Hypertensive heart disease without heart failure; I25.10 Atherosclerotic heart disease of native coronary artery without angina pectoris; I73.9 Peripheral vascular disease, unspecified; E78.00 Pure hypercholesterolemia, unspecified; I25.5 Ischemic cardiomyopathy; I25.2 Old myocardial infarction; N40.1 Benign prostatic hyperplasia with lower urinary tract symptoms; F17.210 Nicotine dependence, cigarettes, uncomplicated; Z95.5 Presence of coronary angioplasty implant and graft; Z95.1 Presence of aortocoronary bypass graft; Z88.8 Allergy status to other drugs, medicaments and biological substances; Z79.82 Long term (current) use of aspirin; Z79.899 Other long term (current) drug therapy; Z86.718 Personal history of other venous thrombosis and embolism; Z82.49 Family history of ischemic heart disease and other diseases of the circulatory system ==